=== PATIENT | female | born 1955 | race Caucasian/White ===

== ENCOUNTER 2019-07-23 09:35 | Emergency (ER) | payer MEDICAID ==
[~2019-07-23] VITALS: Ht 160 cm; Wt 64.0 kg
[2019-07-23 10:00] VITALS: Ht 160 cm; Wt 64.0 kg
[2019-07-23 15:40] VITALS: BP 116/52
== END 2019-07-23 15:40 | disposition home or self-care (01) ==
LOC: ED 09:35
DX: R51 Headache (principal); R11.10 Vomiting, unspecified; R05 Cough; R06.02 Shortness of breath; R07.89 Other chest pain; F32.9 Major depressive disorder, single episode, unspecified; K21.9 Gastro-esophageal reflux disease without esophagitis; Z90.710 Acquired absence of both cervix and uterus; Z88.1 Allergy status to other antibiotic agents
CPT/HCPCS: 87804; J0696; J1885; J2765; J7060

== ENCOUNTER 2019-07-28 10:27 | Emergency (ER) | payer MEDICAID ==
[~2019-07-28] VITALS: Ht 160 cm; Wt 64.0 kg
[2019-07-28 10:32] VITALS: Ht 160 cm; Wt 64.0 kg
[2019-07-28 12:59] VITALS: BP 108/72
== END 2019-07-28 12:59 | disposition home or self-care (01) ==
LOC: ED 10:27
DX: J06.9 Acute upper respiratory infection, unspecified (principal); K21.9 Gastro-esophageal reflux disease without esophagitis; Z88.1 Allergy status to other antibiotic agents; Z91.018 Allergy to other foods; Z90.710 Acquired absence of both cervix and uterus
CPT/HCPCS: Q0092

== ENCOUNTER 2020-08-21 11:18 | Emergency (ER) | payer OTHER, SELFPAY ==
[~2020-08-21] VITALS: Ht 160 cm; Wt 68.0 kg
[2020-08-21 12:19] VITALS: BP 121/82; Ht 160 cm; Wt 68.0 kg
== END 2020-08-21 14:40 | disposition home or self-care (01) ==
LOC: ED 11:18
DX: R09.81 Nasal congestion (principal); R05 Cough; K21.9 Gastro-esophageal reflux disease without esophagitis; Z20.828 Contact with and (suspected) exposure to other viral communicable diseases; Z90.711 Acquired absence of uterus with remaining cervical stump; Z88.1 Allergy status to other antibiotic agents; Z91.018 Allergy to other foods
CPT/HCPCS: U0003